=== PATIENT | male | born 1960 | race Caucasian/White ===

== ENCOUNTER 2018-11-13 19:56 | Emergency (ER) | payer OTHER ==
[2018-11-13 20:47] VITALS: BP 143/90; PULSE 84; TEMP 98.4; BMI 26.4
[2018-11-13] MEDS ORDERED: FAMOTIDINE 20 MG/50 ML IVPB 20 MG/50 ML MG IVPB ONE ×2 (21:37→21:58)
[2018-11-13] MEDS ORDERED: MAG HYDROX/AL HYDROX/SIMETH 30 ML UNIT-DOSE CUP PO ONE (21:37)
[2018-11-13] MEDS ORDERED: LIDOCAINE VISCOUS 2% ORAL/TOP 20 ML UNIT-DOSE CUP MM ONE (21:37)
--- NOTE | 2018-11-13 21:39 | PDOC ---
History of Present Illness - General Chief Complaint: Pain Stated Complaint: ABDOMINAL PAIN Time Seen by Provider: 11/13/18 21:28 - History of Present Illness Initial Comments: Jordy Durham is a 58yo otherwise healthy man who presents with 2 days of watery diarrhea and now severe epigastric pain. He says that he went to dinner with a friend on Tuesday night, and he woke up at 1am on Tuesday (yesterda) with multiople episodes of vomiting and diarrhea. He initially thought he probably had food poisoning, but his friend who ate from the same plate did not get sick. The vomiting stopped around 6am yesterday, and he thougth he was getting better in the afternoon, but the diarrhea started again yesterday. He states that the diarrhea is watery and "looks like a charcoal emulsion" with black specks in water. He bought immodium, which has stopped the diarrhea, but he continues to have severe epigastric and LUQ pain. He says that he can barely touch the area, and he has felt sweaty and lightheaded. Mr Durham went to an urgent care center today. 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 He additionally reported a visual disturbance, stating that everything looked "too bright." The urgent care physician was concerned that he could possibly have metal poisoning and transferred him to the ED for additional workup. The pt states that he wears appropriate protective equipment at work including a respirator, and he has been "very careful" while at work. He strongly believes that he has not been exposed to any metals and says he last worked with them at least a week ago. Mr Durham denies any other medical problems, frequent OTC medication use, drug or alcohol use, frequent heartburn, continued vomiting, family medical history, or any other problems. He says that he does not want any imaging, and he just wants medication for food poisoning and to be discharged home. Past History - Past Medical History Allergies/Adverse Reactions: Allergies Allergy/AdvReac Type Severity Reaction Status Date / Time No Known Allergies Allergy Verified 11/13/18 20:47 Home Medications: Ambulatory Orders Pantoprazole Sodium 40 mg PO DAILY #14 tablet. 11/14/18 - Suicide/Smoking/Psychosocial Hx Smoking History: Never smoked Have you smoked in the past 12 months: No Information on smoking cessation initiated: No Hx Alcohol Use: No Drug/Substance Use Hx: No Review of Systems - Review of Systems Comments:: General: No fevers, no chills, no weight or appetite change, no malaise HEENT: No changes in vision, no changes in hearing, no congestion, no sore throat CV: No chest pain, no palpitations, no LE edema Pulm: No SOB, no cough, no wheezing GI: See HPI : No frequency, no urgency, no dysuria Musc: No back pain, no joint swelling, no recent injury Skin: No rash, no lesions, no erythema Endo: No excessive thirst, no heat/cold intolerance Heme: No unusual bruising or bleeding, no swollen glands Neuro: No syncope, no numbness/tingling, no focal weakness Vasc: No claudication Psych: No recent change in mood, no SI or HI *Physical Exam - Vital Signs Last Vital Signs Temp Pulse Resp BP Pulse Ox 98.4 F 84 18 143/90 100 11/13/18 19:56 11/13/18 19:56 11/13/18 19:56 11/13/18 19:56 11/13/18 19:56 - Physical Exam Comments: General: Comfortable, no acute distress HEENT: PERRL, EOMI, dry mouth/tongue, voice normal, normal neck ROM Cards: RRR, no murmur appreciated Pulm: Comfortable on room air, clear to auscultation bilaterally Abd: Soft, non-distended. Severe TTP in epigastrium and LUQ : No CVA tenderness Rectal: Pt declined Ext: Atraumatic. No LE edema. ROM intact. Vasc: Extremities WWP Skin: Normal color, no rashes or lesions Neuro: A&Ox3, CN grossly intact, normal speech, motor/sensory grossly intact and symmetric Psych: Mood appropriate to situation ED Treatment Course - LABORATORY CBC & Chemistry Diagram: 11/13/18 21:50 11/13/18 21:50 Medical Decision Making - Medical Decision Making 11/13/18 21:38 Jordy Durham is a 58yo otherwise healthy man who presents with vomiting and diarrhea 2 days ago, now continued black watery diarrhea and severe epigastric pain. He additionally has visual disturbance, lightheadedness, and sweating today. Mr Durham was sent to the ED from urgent care due to concern that he may have had unintentional metal poisoning at work, but his last possible exposure was at least a week prior to symptom onset; he was feeling completely well prior to abrupt onset of symptoms 2 days ago. Mr Durham requests medication and declines any imaging or additional workup. - May be gastroenteritis, gastritis. Concerning for GI bleed given black stools , severe TTP in epigastrium and LUQ could potentially be due to PUD. - Less likely metal poisoning as he had abrupt onset of symptoms a week after any potential exposure. - Declines any imaging, even after discussion w/ pt explaining rationale - CBC, CMP ordered - Clinically dehydrated, IVF ordered - Famotidine, maalox, viscous lidocaine 11/13/18 23:32 - Labs notable for hgb 10.7, BUN 53 - d/w patient. Concerning for possible bleeding ulcer given epigastric/LUQ pain and black stool. Declines rectal exam. Discussed reason for obtaining rectal exam and stool sample, but pt continues to decline stating that he did not see any blood when he vomited on Tuesday - Pt given hemoccult card as he declined ELAINE, but placed card in his wallet rather than attempting to provide sample - Discussed with pt at length that he is anemic and dehydrated, strongly recommending admission for IVF and additional workup. Pt states that he does not wish to be admitted to the hospital, plans to take an uber home after his 1L IVF is completed. - Will have pt sign out AMA if he continues to decline admission 11/14/18 00:43 - Pt continued to decline additional workup - Will refer to GI and medicine for follow up - Discussed home care and return precautions at length. Mr Durham understands why additional workup and admission are being recommended but still prefers to go home. Says he feels better - Labs for metals including aluminum, copper, [place], cobalt (possible exposures) sent. Will call if positive - AMA paperwork signed Discussed with Dr Almaraz. Raisa Perez PGY2 *DC/Admit/Observation/Transfer Diagnosis at time of Disposition: Watery diarrhea, Dehydration, Epigastric abdominal pain - Discharge Dispostion Disposition: AGAINST MEDICAL ADVICE Condition at time of disposition: Fair - Referrals Referrals: Manjinder Tomlin DO [Staff Physician] - [facility] [place] [Provider Group] - Patient Instructions Printed Discharge Instructions: DI for Epigastric Pain Additional Instructions: Discharge Instructions: You were seen in the emergency department for epigastric pain and diarrhea. Your labs showed that you are anemic with a hemoglobin of 10.7. Your BUN is also elevated, which indicates dehydration. You declined any imaging or additional workup, so the exact cause of your symptoms cannot be determined. It is possible that you have stomach ulcers or possibly bleeding in the GI tract that was not confirmed. Home Care and Follow Up: - Use medications such as lansoprazole or omeprazole daily for the next 1-2 weeks until your symptoms completely resolve. You may wish to switch to a medication such as famotidine or ranitidine (available over the counter) at that point. - You may use Maalox or Mylanta as needed for stomach pain - Make sure you are staying well hydrated - You have been given contact information to follow up with Dr Tomlin (GI). Please make an appointment within the next week. - You have also been referred to the [facility] to establish healthcare. Please call to schedule an appointment as soon as possible. - Seek immediate care if you are unable to stay hydrated, you have continued or worsening symptoms, you are unable to tolerate liquids, you have blood in your stool or vomit, or you have any other medical emergency. - Post Discharge Activity
[2018-11-13] MEDS ORDERED: SODIUM CHLORIDE 0.9% 500 ML INFUS.BAG IV ONE (21:45)
[2018-11-13] MEDS ORDERED: MAG HYDROX/AL HYDROX/SIMETH 30 ML UNIT-DOSE CUP ONE (21:57)
[2018-11-13] MEDS ORDERED: LIDOCAINE VISCOUS 2% ORAL/TOP 20 ML UNIT-DOSE CUP ONE (21:57)
[2018-11-13 22:01] LABS: BASO % 0.4 % (0-2.0); EOS % 2.4 % (0-4.5); HEMATOCRIT 31.6 % (35.4-49); HEMOGLOBIN 10.7 GM/dL (11.7-16.9); LYMPH % 32.2 % (8-40); MCH 34.7 pg (25.7-33.7); MCHC 33.9 g/dl (32.0-35.9); MEAN CELL VOLUME 102.4 fl (80-96); MEAN PLT VOLUME 8.7 fl (7.5-11.1); MONO % 7.2 % (3.8-10.2); NEUT % 57.8 % (42.8-82.8); PLATELET COUNT 175 K/MM3 (134-434); RBC 3.08 M/mm3 (4.00-5.60); RDW 12.4 % (11.9-15.9); WHITE BLOOD COUNT 8.3 K/mm3 (4.0-10.0)
[2018-11-13 22:42] LABS: ALBUMIN 3.1 g/dl (3.4-5.0); BILIRUBIN,TOTAL 0.5 mg/dL (0.2-1); BLOOD UREA NITROGEN 53.3 mg/dL (7-18); CALCIUM 8.1 mg/dL (8.5-10.1); CREATININE 0.9 mg/dL (0.55-1.3); POTASSIUM 4.2 mmol/L (3.5-5.1); TOT PROT 5.4 g/dl (6.4-8.2)
--- NOTE | 2018-11-14 00:43 | PDOC ---
Documentation entered by Clint Todd SCRIBE, acting as scribe for Kym Almaraz MD. Kym Almaraz MD: This documentation has been prepared by the sune, Clint Todd SCRIBE, under my direction and personally reviewed by me in its entirety. I confirm that the documentation accurately reflects all work, treatment, procedures, and medical decision making performed by me. Attending Attestation - Resident Resident Name: Raisa Perez - ED Attending Attestation I have performed the following: I have examined & evaluated the patient, The case was reviewed & discussed with the resident, I agree w/resident's findings & plan, Exceptions are as noted - HPI HPI: 11/13/18 21:48 The patient is a 58 year old male with no past medical history here today for evaluation of epigastric pain and vomiting. The patient reports that he developed epigastric pain, diarrhea, and vomiting tuesday night into tuesday and partially resolved. He reports that his epigastric pain and diarrhea returned worse today and bought imodium and pepto. 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 He also notes feeling weak. Patient denies headache, lightheadedness. Denies fever, chills. Denies chest pain, shortness of breath. Allergies: NKA - Physicial Exam PE: 11/13/18 21:48 GENERAL: Well developed, thin. Awake and alert. No acute distress. HEENT: +dry mucous membranes. Normocephalic, atraumatic. PERRLA, EOMI. No conjunctival pallor. Sclera are non-icteric. Oropharynx is clear. NECK: Supple. Full ROM. No JVD. Carotid pulses 2+ and symmetric, without bruits. No thyromegaly. No lymphadenopathy. CARDIOVASCULAR: Regular rate and rhythm. No murmurs, rubs, or gallops. Distal pulses are 2+ and symmetric. PULMONARY: No evidence of respiratory distress. Lungs clear to auscultation bilaterally. No wheezing, rales or rhonchi. ABDOMINAL: +epigastric tenderness. +tenderness at the umbilicus. Soft. Non-distended. No rebound or guarding. No organomegaly. Normoactive bowel sounds. MUSCULOSKELETAL Normal range of motion at all joints. No bony deformities or tenderness. No CVA tenderness. EXTREMITIES: No cyanosis. No clubbing. No edema. No calf tenderness. SKIN: Warm and dry. Normal capillary refill. No rashes. No jaundice. NEUROLOGICAL: Alert, awake, appropriate. Cranial nerves 2-12 intact. No deficits to light touch and temperature in face, upper extremities and lower extremities. No motor deficits in the in face, upper extremities and lower extremities. Normoreflexic in the upper and lower extremities. Normal speech. Toes are down- going bilaterally. Gait is normal without ataxia. PSYCHIATRIC: Cooperative. Good eye contact. Appropriate mood and affect. - Medical Decision Making 11/14/18 00:03 patient appears severely dehydrated with dry mucous membranes review his labs findings that he has anemia and also has an elevated BUN of 53 on exam, the patient had tenderness in his epigastric area patient agrees to IV fluids at this time but does not want any imaging studies, he says he does not want to stay,we discussed his anemia and he did not want to have a rectal exam at this time. 11/14/18 00:38 Once he received his IVF he refused any further treatment or work up, he signed AMA
== END 2018-11-14 00:46 | disposition left against medical advice (07) ==
LOC: JER 19:56
PROC: 3E033GC Introduction of Other Therapeutic Substance into Peripheral Vein, Percutaneous Approach (ICD-10-PCS; principal; 2018-11-13)
DX: E86.0 Dehydration (principal)
CPT/HCPCS: 36415; 80053; 85025; 99282-25

== ENCOUNTER 2018-11-14 18:14 | Inpatient (IN) | payer OTHER ==
[2018-11-14 18:30] VITALS: BMI 23.1
--- NOTE | 2018-11-14 18:30 | PDOC ---
Rapid Medical Evaluation Time Seen by Provider: 11/14/18 18:23 Medical Evaluation: Allergies Allergy/AdvReac Type Severity Reaction Status Date / Time No Known Allergies Allergy Verified 11/13/18 20:47 11/14/18 18:24 The patient presents to the ER after passing out this afternoon. Was seen last night for abdominal pain and epigastric pain. He states that blacked out this after noon when trying to answer a phone. Does not remember falling or hitting his head. Still reports some abdominal pain Exam: laceration to the posterior head, NAD Orders: labs, head CT, EKG Pt to proceed to the ER for further evaluation Discharge Disposition - Diagnosis Syncope - Referrals - Patient Instructions - Post Discharge Activity
[2018-11-14 20:51] LABS: BASO % 0.5 % (0-2.0); HEMATOCRIT 26.2 % (35.4-49); HEMOGLOBIN 8.8 GM/dL (11.7-16.9); LYMPH % 20.7 % (8-40); MCH 34.6 pg (25.7-33.7); MCHC 33.5 g/dl (32.0-35.9); MEAN CELL VOLUME 103.4 fl (80-96); MEAN PLT VOLUME 9.2 fl (7.5-11.1); MONO % 5.8 % (3.8-10.2); PLATELET COUNT 166 K/MM3 (134-434); RBC 2.53 M/mm3 (4.00-5.60); RDW 12.6 % (11.9-15.9); WHITE BLOOD COUNT 8.5 K/mm3 (4.0-10.0)
[2018-11-14 21:04] LABS: PROTHROMBIN TIME (PATIENT) 11.8 SEC (9.7-13.0)
[2018-11-14 21:28] LABS: ALBUMIN 3.2 g/dl (3.4-5.0); BILIRUBIN,TOTAL 0.4 mg/dL (0.2-1); BLOOD UREA NITROGEN 39.6 mg/dL (7-18); CALCIUM 8.1 mg/dL (8.5-10.1); CREATININE 0.9 mg/dL (0.55-1.3); TOT PROT 5.6 g/dl (6.4-8.2)
[2018-11-14] MEDS ORDERED: PANTOPRAZOLE SODIUM 40 MG VIAL IVPUSH ONE (22:06)
[2018-11-14] MEDS ORDERED: SODIUM CHLORIDE 1,000 ML IV STA (22:36)
[2018-11-14] MEDS ORDERED: PANTOPRAZOLE SODIUM 40 MG/100 ML BAG IVPB ONE (22:49)
--- NOTE | 2018-11-15 00:45 | PDOC ---
Documentation entered by Jimmy Anthony SCRIBE, acting as scribe for Kym Almaraz MD. Kym Almaraz MD: This documentation has been prepared by the Gabrielle dewey Elijah, SCRIBE, under my direction and personally reviewed by me in its entirety. I confirm that the documentation accurately reflects all work, treatment, procedures, and medical decision making performed by me. History of Present Illness - General Chief Complaint: Injury Stated Complaint: FALL/HEAD INJURY/SYNCOPE Time Seen by Provider: 11/14/18 18:23 History Source: Patient Exam Limitations: No Limitations - History of Present Illness Initial Comments: 11/14/18 19:49 The patient is a 58 year old male with no reported significant past medical history who reports to the ED s/p syncopal episode. The patient reported being sick with nausea, vomiting and diarrhea x3 days prior. The day after, the patient only had diarrhea, took imodium and came into the ED for weakness. The patient required IV, refused imaging and left AMA. This morning the patient could only take 10 steps before sitting down. Later in the day the patient woke up on the floor after hitting the floor with blood on their head and losing consciousness which was said to have lasted for a few minutes. Allergies: NKA Past History - Past Medical History Allergies/Adverse Reactions: Allergies Allergy/AdvReac Type Severity Reaction Status Date / Time No Known Allergies Allergy Verified 11/13/18 20:47 Home Medications: Ambulatory Orders Pantoprazole Sodium 40 mg PO DAILY #14 tablet. 11/14/18 Asthma: No Cardiac Disorders: No COPD: No Diabetes: No - Immunization History Immunization Up to Date: No - Suicide/Smoking/Psychosocial Hx Smoking History: Never smoked Have you smoked in the past 12 months: No Information on smoking cessation initiated: No Hx Alcohol Use: No Drug/Substance Use Hx: No Review of Systems - Review of Systems Comments:: 11/14/18 19:50 GENERAL/CONSTITUTIONAL:+Weakness. +Fatigue No fever or chills. HEAD, EYES, EARS, NOSE AND THROAT: No change in vision. No ear pain or discharge. No sore throat. CARDIOVASCULAR: No chest pain or shortness of breath. RESPIRATORY: No cough, wheezing, or hemoptysis. GASTROINTESTINAL: No nausea, vomiting, diarrhea or constipation. GENITOURINARY: No dysuria, frequency, or change in urination. MUSCULOSKELETAL: No joint or muscle swelling or pain. No neck or back pain. SKIN: No rash NEUROLOGIC: +Difficulty Walking. No headache, vertigo, ENDOCRINE: No increased thirst. No abnormal weight change. HEMATOLOGIC/LYMPHATIC: No anemia, easy bleeding, or history of blood clots. ALLERGIC/IMMUNOLOGIC: No hives or skin allergy. *Physical Exam - Vital Signs Last Vital Signs Temp Pulse Resp BP Pulse Ox 98.4 F 98 H 16 120/67 100 11/14/18 18:26 11/14/18 18:26 11/14/18 18:26 11/14/18 18:26 11/14/18 18:26 - Physical Exam Comments: 11/14/18 19:51 GENERAL: Awake, alert, and fully oriented, in no acute distress HEAD: +Skull Plaque EYES: + Pale Conjunctiva. PERRLA, EOMI, sclera anicteric, ENT: Auricles normal inspection, hearing grossly normal, nares patent, oropharynx clear without exudates. Moist mucosa NECK: Normal ROM, supple, no lymphadenopathy, JVD, or masses LUNGS: Breath sounds equal, clear to auscultation bilaterally. No wheezes, and no crackles HEART: +Tachycardic. Normal S1 and S2, no murmurs, rubs or gallops ABDOMEN: Soft, nontender, normoactive bowel sounds. No guarding, no rebound. No masses EXTREMITIES: Normal range of motion, no edema. No clubbing or cyanosis. No cords, erythema, or tenderness NEUROLOGICAL: Cranial nerves II through XII grossly intact. Normal speech, normal gait SKIN: Warm, Dry, normal turgor, no rashes or lesions noted. Procedures - Laceration/Wound Repair Right Temporal Wound Length: 2.6 to 5.0 cm Wound's Depth, Shape: into muscle Irrigated w/ Saline: Yes Betadine Prep: Yes Anesthesia: 1% Lidocaine Amount of Anesthetic (ccs): 6 Wound Debrided: minimal Wound Repaired With: [place] (four timo) Layer Closure: No Sterile Dressing Applied: No Splint Applied: No Sling Applied: No ED Treatment Course - LABORATORY CBC & Chemistry Diagram: 11/14/18 20:40 11/14/18 20:40 - ADDITIONAL ORDERS Additional order review: Laboratory Results 11/14/18 11/14/18 11/14/18 22:20 20:40 20:40 PT with INR INR Sodium Potassium Chloride Carbon Dioxide Anion Gap BUN Creatinine Est GFR (CKD-EPI)AfAm Est GFR (CKD-EPI)NonAf Random Glucose Calcium Total Bilirubin AST ALT Alkaline Phosphatase Creatine Kinase 43 Troponin I < 0.02 Total Protein Albumin Stool Occult Blood Positive Blood Type O POSITIVE Antibody Screen Negative Crossmatch See Detail 11/14/18 11/14/18 20:40 20:40 PT with INR 11.80 INR 1.00 Sodium 144 Potassium 4.0 Chloride 110 H Carbon Dioxide 27 Anion Gap 7 L BUN 39.6 H Creatinine 0.9 Est GFR (CKD-EPI)AfAm 107.97 Est GFR (CKD-EPI)NonAf 93.16 Random Glucose 96 Calcium 8.1 L Total Bilirubin 0.4 AST 38 H ALT 67 H Alkaline Phosphatase 38 L Creatine Kinase Troponin I Total Protein 5.6 L Albumin 3.2 L Stool Occult Blood Blood Type Antibody Screen Crossmatch 11/14/18 20:40 RBC 2.53 L MCV 103.4 H MCHC 33.5 RDW 12.6 MPV 9.2 Neutrophils % 72.0 D Lymphocytes % 20.7 D Monocytes % 5.8 Eosinophils % 1.0 Basophils % 0.5 - RADIOLOGY Radiology Studies Ordered: Category Date Time Status ABDOMEN CTA W/WO CONTRAST [CT] Stat CT Scan 11/14/18 22:35 Taken CHEST CTA [CT] Stat CT Scan 11/14/18 22:35 Taken CHEST X-RAY PORTABLE* [RAD] Stat Radiology 11/14/18 20:13 Completed - Medications Given in the ED: ED Medications Discontinued Medications Generic Name Dose Route Start Last Admin Trade Name Freq PRN Reason Stop Dose Admin Sodium Chloride 1,000 mls @ 1,000 mls/hr 11/14/18 22:36 11/14/18 23:54 Normal Saline - IV 11/14/18 23:35 1,000 mls/hr ASDIR STA Administration Pantoprazole Sodium 40 mg 11/14/18 22:06 11/14/18 23:54 Protonix Iv IVPUSH 11/14/18 22:07 40 mg ONCE ONE Administration Medical Decision Making - Medical Decision Making 11/15/18 02:00 cta chest no PE,no infiltrates,no aortic dissection,no aortic aneurysm *DC/Admit/Observation/Transfer Diagnosis at time of Disposition: Syncope Qualifiers: Syncope type: unspecified Qualified Code(s): R55 - Syncope and collapse Anemia Qualifiers: Anemia type: other cause Other causes of anemia: other cause, not classified Qualified Code(s): D64.89 - Other specified anemias GI bleed Qualifiers: GI bleed type/associated pathology: unspecified gastrointestinal hemorrhage type Qualified Code(s): K92.2 - Gastrointestinal hemorrhage, unspecified Head trauma Qualifiers: Encounter type: initial encounter Qualified Code(s): S09.90XA - Unspecified injury of head, initial encounter Scalp laceration Qualifiers: Encounter type: initial encounter Qualified Code(s): S01.01XA - Laceration without foreign body of scalp, initial encounter - Discharge Dispostion Condition at time of disposition: Good Decision to Admit order: Yes - Referrals - Patient Instructions - Post Discharge Activity
[2018-11-15] MEDS ORDERED: LACTATED RINGERS SOLUTION 1000 ML INFUS.BAG IV ONE (04:18)
[2018-11-15] MEDS ORDERED: PANTOPRAZOLE SODIUM 40 MG VIAL IVPUSH ONE (04:30)
[2018-11-15] MEDS ORDERED: PANTOPRAZOLE SODIUM 40 MG VIAL ONE (05:26)
--- NOTE | 2018-11-15 05:45 | HP ---
CHIEF COMPLAINT: PCP: HISTORY OF PRESENT ILLNESS: 57M with PMH of traumatic L4-L5 injury s/p discectomy presents with head lac and (+)LOC w/a fatigue, lightheadedness. Recently, left AMA from [facility]ED after refusing admission for abd pain, NVD, coal-black melena-diarrhea x3d, with Hgb ~ 10.7. 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 Tried immodium for diarrhea. Had visual hallucinations who which he initially presented to but subsequently referred to the ED due to concern for heavy metal poisoning. For his 11/14 ED presentation, pt loss consciousness(unknown period of time) and found himself on the ground with a scalp laceration. Denies previous history of melena. Denies hematemesis, hematochezia. Never had colonoscopy. Has had h/o of esophageal dilations(2000, 2014). Denies h/o hyplori. Takes daily Aleve and motrin x10ys for generalized body aches. 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 11/14/18 REVIEW OF SYSTEMS CONSTITUTIONAL: positive generalized weakness, malaise Absent: fever, chills, diaphoresis, loss of appetite, weight change HEENT: trouble swallowing meats Absent: rhinorrhea, nasal congestion, throat pain, throat swelling, visual changes CARDIOVASCULAR: Absent: chest pain, syncope, palpitations, irregular heart rate, lightheadedness , peripheral edema RESPIRATORY: Absent: cough, shortness of breath, dyspnea with exertion, orthopnea, wheezing, stridor, hemoptysis GASTROINTESTINAL: positive for abd pain, NVD, melena Absent: abdominal distension, constipation, hematochezia GENITOURINARY: Absent: dysuria, frequency, urgency, hesitancy, hematuria, flank pain, genital pain MUSCULOSKELETAL: Absent: myalgia, arthralgia, joint swelling, back pain, neck pain SKIN: Absent: rash, itching, pallor HEMATOLOGIC/IMMUNOLOGIC: Absent: easy bleeding, easy bruising, lymphadenopathy, frequent infections ENDOCRINE: Absent: unexplained weight gain, unexplained weight loss, heat intolerance, cold intolerance NEUROLOGIC: Absent: headache, focal weakness or paresthesias, dizziness, unsteady gait, seizure, mental status changes, bladder or bowel incontinence PSYCHIATRIC: Absent: anxiety, depression, suicidal or homicidal ideation, hallucinations. PHYSICAL EXAMINATION Vital Signs - 24 hr 11/14/18 11/14/18 18:26 23:43 Temperature 98.4 F Pulse Rate 98 H Pulse Rate [ 80 Right Radial] Respiratory 16 14 Rate Blood Pressure 120/67 Blood Pressure 109/98 [Right Arm] O2 Sat by Pulse 100 100 Oximetry (%) GENERAL: Awake, alert, and fully oriented, in no acute distress. HEAD: Right church lac, closed with timo; no active bleed EYES: Pupils equal, round and reactive to light, extraocular movements intact, sclera anicteric, conjunctiva clear. No sceral pallor. EARS, NOSE, THROAT: Ears normal, nares patent, oropharynx clear without exudates. Moist mucous membranes. NECK: Normal range of motion, supple without lymphadenopathy, JVD, or masses. LUNGS: Breath sounds equal, clear to auscultation bilaterally. No wheezes, and no crackles. No accessory muscle use. HEART: Regular rate and rhythm, normal S1 and S2 without murmur, rub or gallop. ABDOMEN: Soft, not distended, mild TTP of Left hemiabd/epigastrium, no guarding , no rebound, no masses. MUSCULOSKELETAL: Normal range of motion at all joints. No bony deformities or tenderness. No CVA tenderness. UPPER EXTREMITIES: warm, well-perfused. No cyanosis. No clubbing. No peripheral edema. Capillary refill <2s LOWER EXTREMITIES: warm, well-perfused. No calf tenderness. No peripheral edema. NEUROLOGICAL: Normal speech. Normal gait. PSYCHIATRIC: Cooperative. Good eye contact. Appropriate mood and affect. SKIN: Warm, dry, normal turgor, no rashes or lesions noted, normal capillary refill. Laboratory Results - last 24 hr 11/14/18 11/14/18 11/14/18 20:40 20:40 20:40 WBC 8.5 RBC 2.53 L Hgb 8.8 L Hct 26.2 L D MCV 103.4 H MCH 34.6 H MCHC 33.5 RDW 12.6 Plt Count 166 MPV 9.2 Absolute Neuts (auto) 6.1 Neutrophils % 72.0 D Lymphocytes % 20.7 D Monocytes % 5.8 Eosinophils % 1.0 Basophils % 0.5 Nucleated RBC % 0 PT with INR 11.80 INR 1.00 Sodium 144 Potassium 4.0 Chloride 110 H Carbon Dioxide 27 Anion Gap 7 L BUN 39.6 H Creatinine 0.9 Est GFR (CKD-EPI)AfAm 107.97 Est GFR (CKD-EPI)NonAf 93.16 Random Glucose 96 Calcium 8.1 L Total Bilirubin 0.4 AST 38 H ALT 67 H Alkaline Phosphatase 38 L Creatine Kinase Troponin I Total Protein 5.6 L Albumin 3.2 L Stool Occult Blood Blood Type Antibody Screen Crossmatch 11/14/18 11/14/18 11/14/18 20:40 20:40 22:20 WBC RBC Hgb Hct MCV MCH MCHC RDW Plt Count MPV Absolute Neuts (auto) Neutrophils % Lymphocytes % Monocytes % Eosinophils % Basophils % Nucleated RBC % PT with INR INR Sodium Potassium Chloride Carbon Dioxide Anion Gap BUN Creatinine Est GFR (CKD-EPI)AfAm Est GFR (CKD-EPI)NonAf Random Glucose Calcium Total Bilirubin AST ALT Alkaline Phosphatase Creatine Kinase 43 Troponin I < 0.02 Total Protein Albumin Stool Occult Blood Positive Blood Type O POSITIVE Antibody Screen Negative Crossmatch See Detail ASSESSMENT/PLAN: 57M presenting with acute upper GI bleed possibly 2/2 chronic NSAID usage, less likely from esophageal varices # upper GI bleed >hgb ~8.8 >CTA chest/abd/pel -- no abn - pantoprazole 80mg, then 8mg/h - NPO - transfuse pRBC x1 - GI consult pending # chronic EtOH usage - banana bag x1 - CIWA precautions # chronic esophageal stricture - appreciate GI consult recommendations NEURO # (+)LOC - echo pending # head laceration >noncon CTH -- neg for intracranial processes - s/p staple closure - no abx needed - pain regimen: acetaminophen CARDIO # no acutely active issues - tele monitor for +LOC - vitals q4h RESPIR # chronic tobacco usage - counseled on tobacco cessation - consider starting nicotine patch PRN RENAL # no acutely active issues - monitor I/Os - replete electrolytes PRN FEN - NPO - protonix gtt then LR mIVF HEME/ID # acute macrocytic anemia likely 2/2 to upper GIB + B-vitamin deficiency - fu post-transfusion H/H DISPO - likely safe for home upon resolution of above issues Sudheer Cantu, DO PGY-1 Medicine, PM Float [id number] 11/15/18 Visit type - Emergency Visit Emergency Visit: Yes ED Registration Date: 11/15/18 Care time: The patient presented to the Emergency Department on the above date and was hospitalized for further evaluation of their emergent condition. - New Patient This patient is new to me today: Yes Date on this admission: 11/15/18 - Critical Care Critical Care patient: No
[2018-11-15] MEDS ORDERED: FOLIC ACID INJECTION - 1 MG, THIAMINE HCL 100 MG, MULTIVIT INJECTION ADULT 10 ML in SOD... IVPB ONE (06:02)
[2018-11-15] MEDS: PANTOPRAZOLE SODIUM 80 MG in SODIUM CHLORIDE 100 ML IVPB SCH ×2 (06:14→08:41)
--- NOTE | 2018-11-15 06:32 | PN ---
Teaching Attending Note Name of Resident: Sudheer Cantu ATTENDING PHYSICIAN STATEMENT I saw and evaluated the patient. I reviewed the resident's note and discussed the case with the resident. I agree with the resident's findings and plan as documented. SUBJECTIVE: Seen and examined; 58 y/o male presenting to the ER with black diarrhea and syncope; he was seen in the ER yday and discharged AMA; please refer to thei notes for further historical information. He came back today due to waking up on the ground after he syncopized with a head lac; he was taken to the hospital subsequentially where he revealed the diarrhea history. Hb down 10 to 8 with decrease in BUN and no further bleeding noted here. Has history of what sounds to be esophageal strictures? (said his food got stuck) and he was dilated 2x [place] of state with no recent procedures and he does not follow with GI regularly. He is afebrile and hemodynamically stable. Giving protonix, blood, and admitting to telemetry. He is concerned about food poisoning but he shared a plate with a friend who is asymptomatic. States he uses a good deal of NSAIDs , drinks beer (resident team concerned he may be underplaying hx). Will be admitted to medicne with GI consult. 10 sys ROS done and negative aside from HPI PMH, PSH, FH, SH reviewed Home Medications Medication Instructions Recorded Pantoprazole Sodium 40 mg PO DAILY #14 tablet. 11/14/18 OBJECTIVE: VS, labs, imaging reviewed NAD, AAO, resting comfortably in bed NC, s/p timo, EOMI NT ND +BS Refused rectal RRR s1/2 no mgr Lungs CTAB, w/ sym exp CN2-12 wnl, no fnd Normal mood, appropriate affect. CIWA 0 EKG pending review Preliminary CT reports reviewed ASSESSMENT AND PLAN:
--- NOTE | 2018-11-15 09:13 | CON.GI ---
Consult Consult Specialty:: GI Referred by:: Taran Valerio Reason for Consultation:: Low HGB - History of Present Illness Chief Complaint: LOC History of Present Illness: 58 y/o male presenting to the ER with black diarrhea and syncope; he was seen in the ER yesterday and discharged AMA; He came back today due to waking up on the ground after he syncopized with a head lac; he was taken to the hospital subsequentially where he revealed the diarrhea history. Hb down 10 to 8 with decrease in BUN and no further bleeding noted here. Has history of what sounds to be esophageal strictures? (said his food got stuck) and he was dilated 2x out of state with no recent procedures and he does not follow with GI regularly. He is afebrile and hemodynamically stable. Giving protonix, blood, and admitting to telemetry. He is concerned about food poisoning but he shared a plate with a friend who is asymptomatic. States he uses a good deal of NSAIDs , drinks beer (resident team concerned he may be underplaying hx). Will be admitted to [facility] with GI consult. pt deneis any hematemesis or bloody/bleck stool , he reports symptoms of dizziness and light headedness when he get up of bed reports chronic use of Advil for back pain reports drinking 1-2 beeras daily had sever vomiting Tuesday night for almost 4 hours , one episode of diarrhea on Tuesday , LOC on Tuesday around 5 pm - History Source History Provided By: Patient Limitations to Obtaining History: No Limitations - Past Medical History SAILOR: No: Alzheimer's, CVA, Dementia, Migraine, Multiple Sclerosis, Peripheral Neuropathy, Parkinson's, Seizure, Syncope, TIA, Vertigo, Other Cardio/Vascular: No: AFIB, Aneurysm, Aortic Insufficiency, Aortic Stenosis, CAD , CHF, Deep Vein Thrombosis, HTN, Hyperlipdemia, NV, Mitral Insufficiency, Mitral Stenosis, Murmur, Pulmonary Hypertension, Other Gastrointestinal: Yes: Other (reports solid food stuck in his esophagus and 2 previous dilation was done 2000 and 2014 ). No: Ascites Hepatobiliary: No: Cirrhosis, Cholelithiasis Renal/: No: Hematuria, Hemodialysis Heme/Onc: Yes: Anemia. No: Current Chemotherapy, Current Radiation Therapy - Past Surgical History Additional Surgical History: herniated disk l5-S1 - Alcohol/Substance Use Hx Alcohol Use: Yes (couple of beer every day) Number of Drinks Daily: 2 History of Substance Use: reports: None - Smoking History Smoking history: Current every day smoker (1/2 PPD for 40 years) Have you smoked in the past 12 months: Yes Aproximately how many cigarettes per day: 10 - Social History Usual Living Arrangement: Alone <Aftab Upton - Last Filed: 11/15/18 13:19> Home Medications <Aftab Upton - Last Filed: 11/15/18 13:19> <Magda Armenta - Last Filed: 11/15/18 13:29> - Allergies Allergies/Adverse Reactions: Allergies Allergy/AdvReac Type Severity Reaction Status Date / Time No Known Allergies Allergy Verified 11/13/18 20:47 - Home Medications Home Medications: Ambulatory Orders Pantoprazole Sodium 40 mg PO DAILY #14 tablet. 11/14/18 Family Disease History - Family Disease History Other Family History: non contributory <Aftab Upton - Last Filed: 11/15/18 13:19> Review of Systems - Review of Systems Constitutional: reports: Malaise, Night Sweats HENT: reports: Difficult Swallowing Respiratory: denies: Hemoptysis, Orthopnea, SOB, SOB on Exertion Gastrointestinal: reports: Abdominal Pain, Diarrhea, Dysphagia, Nausea, Vomiting Genitourinary: denies: Dysuria, Flank Pain, Hematuria <Aftab Upton - Last Filed: 11/15/18 13:19> Physical Exam-GI Vital Signs: Vital Signs Temperature 97.9 F 11/15/18 08:56 Pulse Rate 68 11/15/18 08:56 Respiratory Rate 20 11/15/18 08:56 Blood Pressure 122/57 L 11/15/18 08:56 O2 Sat by Pulse Oximetry (%) 100 11/15/18 07:41 Constitutional: Yes: Well Nourished, No Distress, Calm Eyes: Yes: Conjunctiva Clear, EOM Intact HENT: Yes: Atraumatic, Normocephalic Neck: Yes: Supple Cardiovascular: Yes: Regular Rate and Rhythm Respiratory: Yes: CTA Bilaterally Gastrointestinal Inspection: No: Ascites, Distention, Scars ...Auscultate: Yes: Normoactive Bowel Sounds ...Palpate: Yes: Soft, Tenderness (epigastric). No: Guarding, Mass ...Rectal Exam: Yes: Guaiac Positive (done By ED), Sphincter Tone Normal. No: Hemorrhoids/External, Hemorrhoids/Internal, Mass Edema: No Peripheral Pulses WNL: Yes Labs: CBC, [facility] 11/14/18 20:40 11/14/18 20:40 INR, PTT INR 1.00 (0.83-1.09) 11/14/18 20:40 <Aftab Upton - Last Filed: 11/15/18 13:19> Vital Signs: Vital Signs Temperature 97.9 F 11/15/18 13:00 Pulse Rate 65 11/15/18 13:16 Respiratory Rate 18 11/15/18 13:16 Blood Pressure 110/61 11/15/18 13:16 O2 Sat by Pulse Oximetry (%) 100 11/15/18 13:16 Labs: CBC, [facility] 11/14/18 20:40 11/14/18 20:40 INR, PTT INR 1.00 (0.83-1.09) 11/14/18 20:40 <Magda Armenta - Last Filed: 11/15/18 13:29> Imaging - Results Chest X-ray: Report Reviewed X-ray: Report Reviewed Cat Scan: Report Reviewed Ultrasound: Report Reviewed MRI: Report Reviewed EKG: Report Reviewed Other: Report Reviewed <Aftab Upton Last Filed: 11/15/18 13:19> Problem List - Problems (1) Anemia Code(s): D64.9 - ANEMIA, UNSPECIFIED Qualifiers: Anemia type: other cause Other causes of anemia: other cause, not classified Qualified Code(s): D64.89 - Other specified anemias <Aftab Upton - Last Filed: 11/15/18 13:19> Assessment/Plan 58 year old amle with no pmhx presented to the ED with LOC and head laceration due to syncope episode was found to have low HGb and we were consulted for hematemesis # syncope work up per primary team # Anemia macrocytic recieved 2 units PRBC # H/o Esophageal stricture S/P dilation 2014 # Diffuclty swallowing for solid food R.O malignancy vs blomer vison Syndrome vs Diverticulum * pt has low H/H . s.p one units PRBC * Monitor H/H * For EGD today * keep NPO till EGD * iron studies pending * Follow FA , B12 * Lead screening test blood follow up out pt * cont IV fluids * PPI 40 BID * avoid NSAIDS (Advil , alleve , ASA , .....Motrin .....) * can discuss colonoscopy prior to dc vs out pt * * * EGD performed today By Dr dayo Man shows no stricture , GE ulcer , biposies was taken , follow pathology reports * PPI 40 Po BID for 2-3 months till next EGD in 3months * continue thiamin , folic acid , * follow iron studies <Aftab Upton - Last Filed: 11/15/18 13:19> Pt seen/examined with Dr. Upton, agree with above assessment and plan. 58 yo male presenting with syncopal episode, n/v and reported dark stools with acute anemia (macrocytic). Reports history of esophageal strictures requiring dilations a few years ago. No prior colonoscopy. EGD performed today revealing GEJ ulcer extending to cardia, antral erythema otherwise unremarkable. No rings or strictures seen. Biopsies taken. Recommend PPI bid and NSAID avoidance. Follow up pathology results. Complete anemia workup including iron studies/ferritin, B12/folate. Pt will also require colonoscopy, timing to be determined pending clinical course. <Magda Armenta - Last Filed: 11/15/18 13:29>
--- NOTE | 2018-11-15 09:24 | PN ---
Physical Exam: SUBJECTIVE: Patient seen and examined at bedside. pt is currently stable. Pt is stating he is feeling "ok" but has some tenderness in his abdomen. OBJECTIVE: Vital Signs Period Temp Pulse Resp BP Sys/Hernandez Pulse Ox Last 24 Hr 97.9 F-98.6 F 68-98 14-20 109-136/57-98 97-100 GENERAL: The patient is awake, alert, and fully oriented, in no acute distress. HEAD: Normal with no signs of trauma. EYES: extraocular movements intact, sclera anicteric. LUNGS: Breath sounds equal, clear to auscultation bilaterally, no wheezes, no crackles, no accessory muscle use. HEART: Regular rate and rhythm, S1, S2 without murmur, rub or gallop. ABDOMEN: Soft, tender, nondistended, normoactive bowel sounds. EXTREMITIES: 2+ pulses, warm, well-perfused, no edema. NEUROLOGICAL: Cranial nerves II through XII grossly intact. Normal speech, gait not observed. PSYCH: Normal mood, normal affect. SKIN: Warm, dry, normal turgor, no rashes or lesions noted Laboratory Last Values WBC 8.5 K/mm3 (4.0-10.0) 11/14/18 20:40 RBC 2.53 M/mm3 (4.00-5.60) L 11/14/18 20:40 Hgb 8.8 GM/dL (11.7-16.9) L 11/14/18 20:40 Hct 26.2 % (35.4-49) L D 11/14/18 20:40 MCV 103.4 fl (80-96) H 11/14/18 20:40 MCH 34.6 pg (25.7-33.7) H 11/14/18 20:40 MCHC 33.5 g/dl (32.0-35.9) 11/14/18 20:40 RDW 12.6 % (11.9-15.9) 11/14/18 20:40 Plt Count 166 K/MM3 (134-434) 11/14/18 20:40 MPV 9.2 fl (7.5-11.1) 11/14/18 20:40 Absolute Neuts (auto) 6.1 K/mm3 (1.5-8.0) 11/14/18 20:40 Neutrophils % 72.0 % (42.8-82.8) D 11/14/18 20:40 Lymphocytes % 20.7 % (8-40) D 11/14/18 20:40 Monocytes % 5.8 % (3.8-10.2) 11/14/18 20:40 Eosinophils % 1.0 % (0-4.5) 11/14/18 20:40 Basophils % 0.5 % (0-2.0) 11/14/18 20:40 Nucleated RBC % 0 % (0-0) 11/14/18 20:40 PT with INR 11.80 SEC (9.7-13.0) 11/14/18 20:40 INR 1.00 (0.83-1.09) 11/14/18 20:40 Sodium 144 mmol/L (136-145) 11/14/18 20:40 Potassium 4.0 mmol/L (3.5-5.1) 11/14/18 20:40 Chloride 110 mmol/L (98-107) H 11/14/18 20:40 Carbon Dioxide 27 mmol/L (21-32) 11/14/18 20:40 Anion Gap 7 MMOL/L (8-16) L 11/14/18 20:40 BUN 39.6 mg/dL (7-18) H 11/14/18 20:40 Creatinine 0.9 mg/dL (0.55-1.3) 11/14/18 20:40 Est GFR (CKD-EPI)AfAm 107.97 11/14/18 20:40 Est GFR (CKD-EPI)NonAf 93.16 11/14/18 20:40 Random Glucose 96 mg/dL (74-106) 11/14/18 20:40 Calcium 8.1 mg/dL (8.5-10.1) L 11/14/18 20:40 Total Bilirubin 0.4 mg/dL (0.2-1) 11/14/18 20:40 AST 38 U/L (15-37) H 11/14/18 20:40 ALT 67 U/L (13-61) H 11/14/18 20:40 Alkaline Phosphatase 38 U/L (45-117) L 11/14/18 20:40 Creatine Kinase 43 U/L (26-308) 11/14/18 20:40 Troponin I < 0.02 ng/ml (0.00-0.05) 11/14/18 20:40 Total Protein 5.6 g/dl (6.4-8.2) L 11/14/18 20:40 Albumin 3.2 g/dl (3.4-5.0) L 11/14/18 20:40 Stool Occult Blood Positive (NEGATIVE) 11/14/18 22:20 Blood Type O POSITIVE 11/15/18 03:18 Antibody Screen Negative 11/14/18 20:40 Crossmatch See Detail 11/14/18 20:40 Active Medications Generic Name Dose Route Start Last Admin Trade Name Freq PRN Reason Stop Dose Admin Acetaminophen 650 mg 11/15/18 05:43 Tylenol - PO Q6H PRN Fever Or Pain Pantoprazole Sodium 80 mg/ 100 mls @ 10 mls/hr 11/15/18 05:00 11/15/18 08:41 Sodium Chloride IVPB 11/16/18 12:00 10 mls/hr Q10H DEIRDRE Administration 8 MG/HR Folic Acid 1 mg/ Thiamine HCl 1,000 mls @ 125 mls/hr 11/15/18 06:02 100 mg/ Multivitamins/Minerals IVPB 11/15/18 14:01 10 ml/ Sodium Chloride ONCE ONE Lactated Ringer's 1,000 ml in 1,000 mls @ 100 mls/hr 11/16/18 13:00 Lactated Ringers Solution IV\\ ASDIR DEIRDRE ASSESSMENT/PLAN: pt is a 58 yo M with Hx of esophageal strictures s/p dilation (2014), traumatic L4/L5 injury s/p discectomy . Pt was admitted with a head laceration following a syncopal episode w/ LOC. Preceding the syncopal episode the pt reports being lightheadedness. Pt states prior to this episode pt has been vomiting since . 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 Pt was recently seen in the [facility] ED on 11/13 with complaints of abdominal pain,n/v/ d. At that time the pt had a Hb of 10.7. Pt left AMA. At home pt took immodium for diarrhea. Later, pt noticed he experienced visual disturbances. Pt admits to having loose dark stool. Pt admits to drinking 1-2 guiness/ night. Acute blood loss anemia 2/2 GE-J ulcer -Hgb 11/14/18 is 8.8. Today 11/15/18 Hgb is 8.4. rpt CBC at 7 pm. if Hgb is below 7.5--> Transfuse. -s/p 2 units pRBC -continue monitoring H/H -GI recs : EGD today showing GEJ ulcer , antral erythema and no active bleeding. Pt needs rpt EGD and colonoscopy in 8-12 weeks as outpt. -f/u w/ Fe studies -GI ppx: PPI 40 mg BID -continue to avoid NSAID Alcohol Abuse -following CIWA , no current signs of withdrawal -s/p banana bag -Folate is 28. Syncopal Episode CT head:-mild volume loss, no acute intracranial pathology -scalp laceration s/p timo -ECHO: Normal LV size and normal LV EF -most likely 2/2 alcohol consumption DVT ppx: SCDs Visit type - Emergency Visit Emergency Visit: No - New Patient This patient is new to me today: No - Critical Care Critical Care patient: No - Discharge Referral Referred to [facility] Med P.C.: No
--- NOTE | 2018-11-15 10:43 | EKG ---
Test Reason : Blood Pressure : / mmHG Vent. Rate : 083 BPM Atrial Rate : 083 BPM P-R Int : 124 ms QRS Dur : 084 ms QT Int : 390 ms P-R-T Axes : 082 069 077 degrees QTc Int : 458 ms NORMAL SINUS RHYTHM NORMAL ECG NO PREVIOUS ECGS AVAILABLE Confirmed by VIDHI PETER, FLYNN ([id number]) on 11/15/2018 10:42:50 AM Referred By: Confirmed By:FLYNN MOSHER MD
[2018-11-15 11:40] LABS: COCAINE, UR NEGATIVE ng/ml (CUTOFF=300); METHADONE, UR NEGATIVE ng/ml (CUTOFF=300); OPIATES, URI NEGATIVE ng/ml (CUTOFF=300); PHENCYCLIDINE,URINE NEGATIVE ng/ml (CUTOFF=25); URINE AMPHETAMINES NEGATIVE ng/ml (CUTOFF=500); URINE BARBITURATES NEGATIVE ng/ml (CUTOFF=200)
[2018-11-15 11:41] LABS: URINE BENZODIAZEPINES POSITIVE ng/ml (CUTOFF=200)
[2018-11-15] MEDS ORDERED: SEVOFLURANE 250 ML BTL ONE (12:26)
--- NOTE | 2018-11-15 13:01 | PN ---
Progress Note (short form) - Note Progress Note: EGD performed today revealing small linear ulcer at GEJ, no active bleeding. Antral erythema also seen. Biopsies taken. See scanned endoscopy report for details. Recommendations: -Resume clear liquid diet -PPI BID -Avoid NSAIDs -Follow up pathology results -Follow up iron studies/ferritin -Recommend colonoscopy to be performed prior to discharge once clinically improved or to be pursued as outpt
--- NOTE | 2018-11-15 13:29 | PN ---
Teaching Attending Note Name of Resident: Kaylen Benitez ATTENDING PHYSICIAN STATEMENT I saw and evaluated the patient. I reviewed the resident's note and discussed the case with the resident. I agree with the resident's findings and plan as documented. SUBJECTIVE: Reports loose dark bowel movements and dark vomitus. Denies hematemesis or hematochezia. No abdominal pain/fevers/chills/shakes/ diaphoresis. OBJECTIVE: Afebrile, Hemodynamically Stable Last Vital Signs Temp Pulse Resp BP Pulse Ox 97.9 F 68 20 122/57 L 100 11/15/18 08:56 11/15/18 08:56 11/15/18 08:56 11/15/18 08:56 11/15/18 09:24 HEENT - scalp laceration s/p timo. Heart - S1, S2, RRR Lungs - clear to auscultation Abdomen - Mild epigastric tenderness, soft, bowel sounds normal. Extremities - no edema, no calf tenderness. Laboratory Results - last 24 hr 11/14/18 11/14/18 11/14/18 20:40 20:40 20:40 WBC 8.5 RBC 2.53 L Hgb 8.8 L Hct 26.2 L D MCV 103.4 H MCH 34.6 H MCHC 33.5 RDW 12.6 Plt Count 166 MPV 9.2 Absolute Neuts (auto) 6.1 Neutrophils % 72.0 D Lymphocytes % 20.7 D Monocytes % 5.8 Eosinophils % 1.0 Basophils % 0.5 Nucleated RBC % 0 PT with INR 11.80 INR 1.00 Sodium 144 Potassium 4.0 Chloride 110 H Carbon Dioxide 27 Anion Gap 7 L BUN 39.6 H Creatinine 0.9 Est GFR (CKD-EPI)AfAm 107.97 Est GFR (CKD-EPI)NonAf 93.16 Random Glucose 96 Calcium 8.1 L Total Bilirubin 0.4 AST 38 H ALT 67 H Alkaline Phosphatase 38 L Creatine Kinase Troponin I Total Protein 5.6 L Albumin 3.2 L Stool Occult Blood Opiates Screen Methadone Screen Barbiturate Screen Phencyclidine Screen Ur Amphetamines Screen MDMA (Ecstasy) Screen Benzodiazepines Screen Cocaine Screen U Marijuana (THC) Screen Blood Type Antibody Screen Crossmatch 11/14/18 11/14/18 11/14/18 20:40 20:40 22:20 WBC RBC Hgb Hct MCV MCH MCHC RDW Plt Count MPV Absolute Neuts (auto) Neutrophils % Lymphocytes % Monocytes % Eosinophils % Basophils % Nucleated RBC % PT with INR INR Sodium Potassium Chloride Carbon Dioxide Anion Gap BUN Creatinine Est GFR (CKD-EPI)AfAm Est GFR (CKD-EPI)NonAf Random Glucose Calcium Total Bilirubin AST ALT Alkaline Phosphatase Creatine Kinase 43 Troponin I < 0.02 Total Protein Albumin Stool Occult Blood Positive Opiates Screen Methadone Screen Barbiturate Screen Phencyclidine Screen Ur Amphetamines Screen MDMA (Ecstasy) Screen Benzodiazepines Screen Cocaine Screen U Marijuana (THC) Screen Blood Type O POSITIVE Antibody Screen Negative Crossmatch See Detail 11/15/18 11/15/18 03:18 10:15 WBC RBC Hgb Hct MCV MCH MCHC RDW Plt Count MPV Absolute Neuts (auto) Neutrophils % Lymphocytes % Monocytes % Eosinophils % Basophils % Nucleated RBC % PT with INR INR Sodium Potassium Chloride Carbon Dioxide Anion Gap BUN Creatinine Est GFR (CKD-EPI)AfAm Est GFR (CKD-EPI)NonAf Random Glucose Calcium Total Bilirubin AST ALT Alkaline Phosphatase Creatine Kinase Troponin I Total Protein Albumin Stool Occult Blood Opiates Screen Negative Methadone Screen Negative Barbiturate Screen Negative Phencyclidine Screen Negative Ur Amphetamines Screen Negative MDMA (Ecstasy) Screen Negative Benzodiazepines Screen Positive A* Cocaine Screen Negative U Marijuana (THC) Screen Negative Blood Type O POSITIVE Antibody Screen Crossmatch Current Medications Generic Name Dose Route Start Last Admin Trade Name Freq PRN Reason Stop Dose Admin Acetaminophen 650 mg 11/15/18 05:43 Tylenol - PO Q6H PRN Fever Or Pain Pantoprazole Sodium 80 mg/ 100 mls @ 10 mls/hr 11/15/18 05:00 11/15/18 08:41 Sodium Chloride IVPB 11/16/18 12:00 10 mls/hr Q10H DEIRDRE Administration 8 MG/HR Folic Acid 1 mg/ Thiamine HCl 1,000 mls @ 125 mls/hr 11/15/18 06:02 100 mg/ Multivitamins/Minerals IVPB 11/15/18 14:01 10 ml/ Sodium Chloride ONCE ONE Lactated Ringer's 1,000 ml in 1,000 mls @ 100 mls/hr 11/16/18 13:00 Lactated Ringers Solution IV ASDIR DEIRDRE Home Medications Medication Instructions Recorded Pantoprazole Sodium 40 mg PO DAILY #14 tablet. 11/14/18 ASSESSMENT/PLAN: 57 year old male with history of Alcohol Excess, esophageal strictures, traumatic L4/5 injury s/p discectomy, presents with loose dark stool and vomiting after recent episode of loss of consciousness with head injury, left AMA from [facility] ED on 11/13, now agrees to be admitted for work-up of melena and anemia. 1. Acute Blood Loss Anemia, likely secondary to GEJ ulcer. CT C/A - No dissection/pulmonary embolus s/p EGD - GEJ Ulcer, antral erythema, no active bleeding Receiving 2 units pRBCs. Iron studies pending. PPI BID, Clear liquid diet as per GI recommendations. 2. History of Alcohol Abuse Denies history of withdrawals. s/p Banana Bag No signs of withdrawal currently - will monitor and start Ativan as per CIWA if any withdrawal symptoms. Thiamine, MVI, Folate supplementation 3. History of Esophageal Stricture - no stricture commented on EGD 11/15 4. Syncopal Episode, alcohol related. No prior episodes. No history of seizure activity. CT Head - mild volume loss, no acute findings. Echo pending Scalp laceration s/p timo. No acute telemonitoring events. 5. Non-obstructing renal stones, incidental finding on CT - for out-patient follow up. 6. Macrocytosis - likely secondary to Alcohol use - B12/Folate levels pending. 7. Active Tobacco Use - offered Nicotine patch. DVT Px - SCDs. Heparin held sec to GI Bleed. GI Px - on PPI
--- NOTE | 2018-11-15 14:07 | ECHO ---
Name: OSMANI PENA Exam:Adult Echocardiogram Study Date: 11/15/2018 08:26 AM Age: 58 yrs Reason For Study: +LOC Height: 77 in Weight: 195 lb BSA: 2.2 m2 MMode/2D Measurements & Calculations IVSd: 0.92 cm Ao root diam: 3.2 cm LVIDd: 5.2 cm LA dimension: 2.8 cm LVIDs: 3.1 cm LVPWd: 1.0 cm EDV(Teich): 127.8 ml LVOT diam: 2.0 cm ESV(Teich): 38.6 ml LAV (MOD-bp): 67.6 ml Doppler Measurements & Calculations MV E max asad: 80.5 cm/sec Ao V2 max: 194.0 cm/sec MV A max asad: 76.6 cm/sec Ao max P.1 mmHg MV E/A: 1.1 MV dec time: 0.23 sec PEDRO(V,D): 2.5 cm2 LV V1 max P.0 mmHg TR max asad: 249.3 cm/sec LV V1 max: 150.0 cm/sec TR max P.1 mmHg Med Peak E' Asad: 13.3 cm/sec Med E/e': 6.1 Lat Peak E' Asad: 14.7 cm/sec Lat E/e': 5.5 Procedure A two-dimensional transthoracic echocardiogram with color flow and Doppler was performed. Left Ventricle The left ventricular size, thickness and function are normal. The left ventricular ejection fraction is normal. Left Ventricular Filling pattern is normal for age. The left ventricular wall motion is jewell l. Right Ventricle The right ventricle is normal in size and function. Atria Normal left and right atrial size and function. Mitral Valve There is mild mitral valve thickening. There is no mitral valve stenosis. There is trace to mild mitr al regurgitation. Tricuspid Valve There is mild tricuspid valve thickening. There is no tricuspid stenosis. There was insufficient TR d etected to calculate RV systolic pressure. Aortic Valve The aortic valve is not well visualized. No hemodynamically significant valvular aortic stenosis. No aortic regurgitation is present. Pulmonic Valve The pulmonic valve is not well visualized. Great Vessels The aortic root is normal size. Pericardium/Pleura There is no pericardial effusion. Interpretation Summary The left ventricular size, thickness and function are normal The left ventricular ejection fraction is normal. The left ventricular wall motion is normal. Left Ventricular Filling pattern is normal for age. There was insufficient TR detected to calculate RV systolic pressure. There is trace to mild mitral regurgitation. MD Jagjit Reid 11/15/2018 02:06 PM
[2018-11-15 14:14] LABS: HEMOGLOBIN 8.4 GM/dL (11.7-16.9); MCH 34.1 pg (25.7-33.7); MCHC 33.8 g/dl (32.0-35.9); MEAN CELL VOLUME 100.9 fl (80-96); MEAN PLT VOLUME 9.5 fl (7.5-11.1); PLATELET COUNT 131 K/MM3 (134-434); RBC 2.48 M/mm3 (4.00-5.60); RDW 14.6 % (11.9-15.9); WHITE BLOOD COUNT 6.8 K/mm3 (4.0-10.0)
[2018-11-15 19:55] LABS: HEMATOCRIT 24.2 % (35.4-49); HEMOGLOBIN 8.3 GM/dL (11.7-16.9); MCHC 34.3 g/dl (32.0-35.9); MEAN CELL VOLUME 99.1 fl (80-96); MEAN PLT VOLUME 9.5 fl (7.5-11.1); PLATELET COUNT 123 K/MM3 (134-434); RBC 2.44 M/mm3 (4.00-5.60); RDW 15.3 % (11.9-15.9); WHITE BLOOD COUNT 6.9 K/mm3 (4.0-10.0)
[2018-11-15] MEDS: PANTOPRAZOLE 40 MG TABLET (FP) PO SCH (21:13)
[2018-11-15] MEDS ORDERED: MELATONIN 5 MG TABLETS PO ONE (21:57)
[2018-11-16 04:07] LABS: SERUM IRON SATURATION 86 % (15-55); TOTAL IRON BINDING CAPACITY 242 ug/dL (250-450)
[2018-11-16] MEDS: ACETAMINOPHEN 325 MG TABLET (FP) PO PRN ×2 (06:36→12:23)
[2018-11-16 07:16] LABS: HEMATOCRIT 27.8 % (35.4-49); HEMOGLOBIN 9.5 GM/dL (11.7-16.9); MCH 34.1 pg (25.7-33.7); MCHC 34.3 g/dl (32.0-35.9); MEAN CELL VOLUME 99.4 fl (80-96); MEAN PLT VOLUME 9.7 fl (7.5-11.1); PLATELET COUNT 147 K/MM3 (134-434); RDW 15.1 % (11.9-15.9); WHITE BLOOD COUNT 7.2 K/mm3 (4.0-10.0)
[2018-11-16 07:43] LABS: BLOOD UREA NITROGEN 10.3 mg/dL (7-18); CALCIUM 8.2 mg/dL (8.5-10.1); CREATININE 0.9 mg/dL (0.55-1.3); MAGNESIUM 2.3 mg/dL (1.8-2.4); PHOSPHOROUS 2.4 mg/dL (2.5-4.9); POTASSIUM 4.3 mmol/L (3.5-5.1)
[2018-11-16] MEDS: PANTOPRAZOLE 40 MG TABLET (FP) PO SCH (09:31)
[2018-11-16] MEDS ORDERED: SODIUM PHOSPHATE - 15 MM in SODIUM CHLORIDE 250 ML IVPB ONE (10:00)
--- NOTE | 2018-11-16 10:55 | PN ---
Teaching Attending Note Name of Resident: Isabella Noriega ATTENDING PHYSICIAN STATEMENT I saw and evaluated the patient. I reviewed the resident's note and discussed the case with the resident. I agree with the resident's findings and plan as documented. SUBJECTIVE: No further dark bowel movements or nausea/vomiting. Denies hematemesis or hematochezia. No abdominal pain/fevers/chills/shakes/ diaphoresis. Tolerating oral intake. OBJECTIVE: Afebrile, Hemodynamically Stable Last Vital Signs Temp Pulse Resp BP Pulse Ox 98.0 F 57 L 18 121/70 100 11/16/18 06:00 11/16/18 06:00 11/16/18 06:00 11/16/18 06:00 11/15/18 21:00 HEENT - R parietal scalp laceration s/p timo. Heart - S1, S2, RRR Lungs - clear to auscultation Abdomen - Soft, non-tender, bowel sounds normal. Extremities - no edema, no calf tenderness. Laboratory Results - last 24 hr 11/14/18 11/15/18 11/15/18 20:40 03:18 10:15 WBC RBC Hgb Hct MCV MCH MCHC RDW Plt Count MPV Sodium Potassium Chloride Carbon Dioxide Anion Gap BUN Creatinine Est GFR (CKD-EPI)AfAm Est GFR (CKD-EPI)NonAf Random Glucose Calcium Phosphorus Magnesium Iron 208 H TIBC 242 L Iron Saturation 86 H Unsaturated IBC 34 L Ferritin Vitamin B12 Serum Folate Opiates Screen Negative Methadone Screen Negative Barbiturate Screen Negative Phencyclidine Screen Negative Ur Amphetamines Screen Negative MDMA (Ecstasy) Screen Negative Benzodiazepines Screen Positive A* Cocaine Screen Negative U Marijuana (THC) Screen Negative Blood Type O POSITIVE Antibody Screen Negative Crossmatch See Detail 11/15/18 11/15/18 11/15/18 13:44 13:44 19:00 WBC 6.8 6.9 RBC 2.48 L 2.44 L Hgb 8.4 L 8.3 L Hct 25.0 L 24.2 L MCV 100.9 H 99.1 H MCH 34.1 H 34.0 H MCHC 33.8 34.3 RDW 14.6 D 15.3 Plt Count 131 L D 123 L MPV 9.5 9.5 Sodium Potassium Chloride Carbon Dioxide Anion Gap BUN Creatinine Est GFR (CKD-EPI)AfAm Est GFR (CKD-EPI)NonAf Random Glucose Calcium Phosphorus Magnesium Iron TIBC Iron Saturation Unsaturated IBC Ferritin 317.6 Vitamin B12 427 Serum Folate 28 H Opiates Screen Methadone Screen Barbiturate Screen Phencyclidine Screen Ur Amphetamines Screen MDMA (Ecstasy) Screen Benzodiazepines Screen Cocaine Screen U Marijuana (THC) Screen Blood Type Antibody Screen Crossmatch 11/16/18 11/16/18 06:14 06:14 WBC 7.2 RBC 2.80 L Hgb 9.5 L Hct 27.8 L MCV 99.4 H MCH 34.1 H MCHC 34.3 RDW 15.1 Plt Count 147 MPV 9.7 Sodium 142 Potassium 4.3 Chloride 109 H Carbon Dioxide 29 Anion Gap 4 L BUN 10.3 Creatinine 0.9 Est GFR (CKD-EPI)AfAm 107.97 Est GFR (CKD-EPI)NonAf 93.16 Random Glucose 98 Calcium 8.2 L Phosphorus 2.4 L Magnesium 2.3 Iron TIBC Iron Saturation Unsaturated IBC Ferritin Vitamin B12 Serum Folate Opiates Screen Methadone Screen Barbiturate Screen Phencyclidine Screen Ur Amphetamines Screen MDMA (Ecstasy) Screen Benzodiazepines Screen Cocaine Screen U Marijuana (THC) Screen Blood Type Antibody Screen Crossmatch Current Medications Generic Name Dose Route Start Last Admin Trade Name Freq PRN Reason Stop Dose Admin Acetaminophen 650 mg 11/15/18 05:43 11/16/18 06:36 Tylenol - PO 650 mg Q6H PRN Administration Fever Or Pain Sodium Phosphate 15 mm/ Sodium 255 mls @ 62.5 mls/hr 11/16/18 10:00 11/16/18 10:31 Chloride IVPB 11/16/18 14:04 62.5 mls/hr ONCE ONE Administration Pantoprazole Sodium 40 mg 11/15/18 22:00 11/16/18 09:31 Protonix - PO 40 mg BID DEIRDRE Administration ASSESSMENT/PLAN: 57 year old male with history of Alcohol Excess, esophageal strictures, traumatic L4/5 injury s/p discectomy, presents with loose dark stool and vomiting after recent episode of loss of consciousness with head injury, left AMA from [facility] ED on 11/13, subsequently admitted for work-up of melena and anemia. 1. Acute Blood Loss Anemia, likely secondary to GEJ ulcer. CT C/A - No dissection/pulmonary embolus s/p EGD 11/15 - GEJ Ulcer, antral erythema, no active bleeding H/H 9.5/29.8 s/p 2 units pRBCs. Tolerating diet, wants to be discharged. PPI BID. GI follow up as out-patient for Colonoscopy as per GI recommendations. 2. History of Alcohol Abuse No evidence of withdrawals s/p Banana Bag Thiamine, MVI, Folate supplementation on discharge. 3. History of Esophageal Stricture - no stricture commented on EGD 11/15 4. Syncopal Episode, alcohol related. No prior episodes. No history of seizure activity. CT Head - mild volume loss, no acute findings. Echo normal. No acute telemonitoring events. Scalp laceration s/p timo - advised to follow with PCP or [facility] for staple removal next week. 5. Non-obstructing renal stones, incidental finding on CT - for out-patient follow up. 6. Macrocytosis - likely secondary to Alcohol use - B12/Folate levels not deficient. 7. Active Tobacco Use - offered Nicotine patch. 8. Hypophosphatemia - due to slow advancement of diet. Phos repleted. Regular diet today. Medically optimized for discharge. No evidence of further blood loss. Counselled regarding need to abstain from alcohol and benzodiazepines (utox pos for Benzos). Importance of PCP and GI follow up (for possible colonoscopy) impressed upon Mr. Felderjoseph. He verbalized understanding.
--- NOTE | 2018-11-16 12:08 | DS ---
Physical Exam: SUBJECTIVE: Patient seen and examined this AM. Seen Ambulating to the solarium. No new complaints, feels much better. No reported dark stools or BRBPR. OBJECTIVE: Vital Signs Period Temp Pulse Resp BP Sys/Hernandez Pulse Ox Last 24 Hr 97.5 F-98.2 F 57-84 16-19 102-136/58-92 98-100 PHYSICAL EXAM GENERAL: A&Ox3, NAD HEAD: NCAT EYES: PERRL, EOMI ENT: moist mucous membranes NECK: Supple LUNGS: Clear to auscultation bilaterally, no wheezes HEART: Regular rate and rhythm, S1, S2 without murmur ABDOMEN: Soft, nontender, nondistended, + bowel sounds, no guarding EXTREMITIES: no edema NEUROLOGICAL: Cranial nerves II through XII grossly intact. Normal speech. SKIN: Warm, dry LABS Laboratory Last Values WBC 7.2 K/mm3 (4.0-10.0) 11/16/18 06:14 RBC 2.80 M/mm3 (4.00-5.60) L 11/16/18 06:14 Hgb 9.5 GM/dL (11.7-16.9) L 11/16/18 06:14 Hct 27.8 % (35.4-49) L 11/16/18 06:14 MCV 99.4 fl (80-96) H 11/16/18 06:14 MCH 34.1 pg (25.7-33.7) H 11/16/18 06:14 MCHC 34.3 g/dl (32.0-35.9) 11/16/18 06:14 RDW 15.1 % (11.9-15.9) 11/16/18 06:14 Plt Count 147 K/MM3 (134-434) 11/16/18 06:14 MPV 9.7 fl (7.5-11.1) 11/16/18 06:14 Absolute Neuts (auto) 6.1 K/mm3 (1.5-8.0) 11/14/18 20:40 Neutrophils % 72.0 % (42.8-82.8) D 11/14/18 20:40 Lymphocytes % 20.7 % (8-40) D 11/14/18 20:40 Monocytes % 5.8 % (3.8-10.2) 11/14/18 20:40 Eosinophils % 1.0 % (0-4.5) 11/14/18 20:40 Basophils % 0.5 % (0-2.0) 11/14/18 20:40 Nucleated RBC % 0 % (0-0) 11/14/18 20:40 PT with INR 11.80 SEC (9.7-13.0) 11/14/18 20:40 INR 1.00 (0.83-1.09) 11/14/18 20:40 Sodium 142 mmol/L (136-145) 11/16/18 06:14 Potassium 4.3 mmol/L (3.5-5.1) 11/16/18 06:14 Chloride 109 mmol/L (98-107) H 11/16/18 06:14 Carbon Dioxide 29 mmol/L (21-32) 11/16/18 06:14 Anion Gap 4 MMOL/L (8-16) L 11/16/18 06:14 BUN 10.3 mg/dL (7-18) 11/16/18 06:14 Creatinine 0.9 mg/dL (0.55-1.3) 11/16/18 06:14 Est GFR (CKD-EPI)AfAm 107.97 11/16/18 06:14 Est GFR (CKD-EPI)NonAf 93.16 11/16/18 06:14 Random Glucose 98 mg/dL (74-106) 11/16/18 06:14 Calcium 8.2 mg/dL (8.5-10.1) L 11/16/18 06:14 Phosphorus 2.4 mg/dL (2.5-4.9) L 11/16/18 06:14 Magnesium 2.3 mg/dL (1.8-2.4) 11/16/18 06:14 Iron 208 ug/dL (38-169) H 11/15/18 03:18 TIBC 242 ug/dL (250-450) L 11/15/18 03:18 Iron Saturation 86 % (15-55) H 11/15/18 03:18 Unsaturated IBC 34 ug/dL (111-343) L 11/15/18 03:18 Ferritin 317.6 ng/ml (8-388) 11/15/18 13:44 Total Bilirubin 0.4 mg/dL (0.2-1) 11/14/18 20:40 AST 38 U/L (15-37) H 11/14/18 20:40 ALT 67 U/L (13-61) H 11/14/18 20:40 Alkaline Phosphatase 38 U/L (45-117) L 11/14/18 20:40 Creatine Kinase 43 U/L (26-308) 11/14/18 20:40 Troponin I < 0.02 ng/ml (0.00-0.05) 11/14/18 20:40 Total Protein 5.6 g/dl (6.4-8.2) L 11/14/18 20:40 Albumin 3.2 g/dl (3.4-5.0) L 11/14/18 20:40 Vitamin B12 427 pg/ml (193-986) 11/15/18 13:44 Serum Folate 28 ng/mL (3.1-17.5) H 11/15/18 13:44 Stool Occult Blood Positive (NEGATIVE) 11/14/18 22:20 Opiates Screen Negative ng/ml (SKOJVH=676) 11/15/18 10:15 Methadone Screen Negative ng/ml (MISEBQ=821) 11/15/18 10:15 Barbiturate Screen Negative ng/ml (FJWDXZ=816) 11/15/18 10:15 Phencyclidine Screen Negative ng/ml (CUTOFF=25) 11/15/18 10:15 Ur Amphetamines Screen Negative ng/ml (OBTNKK=356) 11/15/18 10:15 MDMA (Ecstasy) Screen Negative ng/ml (YJONKQ=847) 11/15/18 10:15 Benzodiazepines Screen Positive ng/ml (QATROA=598) A* 11/15/18 10:15 Cocaine Screen Negative ng/ml (XNHYFQ=950) 11/15/18 10:15 U Marijuana (THC) Screen Negative ng/ml (CUTOFF=50) 11/15/18 10:15 Blood Type O POSITIVE 11/15/18 03:18 Antibody Screen Negative 11/14/18 20:40 Crossmatch See Detail 11/14/18 20:40 IMAGING: -CXR: Unremarkable examination. -CT Head without contrast: Mild volume loss. No gross evidence of a focal intracranial lesion or hemorrhage is seen. -CTA Chest/Abdomen/Pelvis: There is no evidence of aneurysmal dilatation or dissection involving the thoracic and abdominal aorta down through its bifurcation. No evidence of a pulmonary embolus in the main pulmonary artery and its proximal bifurcations, bilaterally. No enlarged mediastinal or hilar lymph nodes are identified. No acute lung disease is present. Possible few tiny diverticula in splenic flexure of the colon without evidence of acute diverticulitis. Nonobstructing left renal stones with the largest measuring 7 mm as well as nonobstructing right renal stones with the largest measuring 4.5 mm without gross evidence of hydronephrosis. -EKG: NSR, VR 83, QTc 458 -ECHO: LVEF is normal HOSPITAL COURSE: Date of Admission:11/15/18 Date of Discharge: 11/16/18 58 y/o M with PMHx of esophageal strictures s/p dilation, traumatic L4/L5 injury s/p discectomy, who recently visited [facility] for Abdominal pain and vomiting, presented to [facility] after a syncopal episode with resultant head laceration stapled on admission. Imaging, Echo and Labwork noted above. Orthostatic vital signs on admission were positive. Admission labwork found a Hgb drop from 10.7 to 8.8 and patient was transfused 2 units pRBCs. An EGD found a GEJ Ulcer without active bleeding. Patient was started on PPI during his stay and an outpatient colonoscopy was done as per GI rec's. patients Hgb responded appropriately to pRBC transfusions and no further episodes of BRBPR or Dark stools noted. Patients diet was advanced and he tolerated. Additionally , Lab work reveal macrocytosis in the setting of excessive EtOH use for which the patient was counselled to avoid EtOH at home and for Thiamine/Folate/MVI supplementation. UTox was positive for benzo's and patient was advised to avoid EtOH and Benzos as these likely contributed to his syncopal episode. Additional recommendations made in DC plan discussed with patient who verbalized understanding. Patient discharged home with recommended outpatient follow up, medication changes and imaging/labwork followup. Minutes to complete discharge: 36 Discharge Summary Reason For Visit: GASTROINTESTINAL HEMORRHAGE,ANEMIA,TRAUMATIC Current Active Problems Anemia (Acute) Gastrointestinal hemorrhage (Acute) Laceration of scalp (Acute) Syncope (Acute) Traumatic injury of head (Acute) Condition: Stable - Instructions Diet, Activity, Other Instructions: You presented to the hospital after a syncopal episodes and were found to be anemic. You were transfused 1 unit of red blood cells. An Endoscopy revealed you have an Ulcer in your stomach. Medication Changes: 1. Please avoid NSAIDs as this will worsen the ulceration 2. You must continue Taking a multivitamin, THiamine and Folic acid. Follow up with the following physicians: 1. PCP in one week, please call to schedule follow up. Additionally you will need to see your PCP to have the timo removed from your laceration. 2. Welcome Hostess in one weeks, Please call to schedule follow up as you will need a colonoscopy Labwork 1. You will need a follow up CBC to monitor your blood hemoglobin level in one week. 2. You need to have your liver enzymes and Liver ultrasound done--Please discuss this with your PCP You must avoid further alcohol use and Benzodiazepine use as these likely contributed to your fall. Your CT Scan reveal you have some nonobstructing kidney stones. Please drink more water as this will help. Continue all your other medications as prescribed Please return to the ER if you have any signs or symptoms of chest pain, shortness of breath, uncontrollable fever, chills, nausea, vomiting, numbness, tingling, or weakness in any part of your body, changes in vision, or slurred speech. Please return to the ER if symptoms persist, worsen, or new symptoms arise. Referrals: Manjinder Tomlin DO [Staff Physician] - Disposition: HOME - Home Medications Comprehensive Discharge Medication List: Ambulatory Orders Folic Acid 1 mg PO DAILY #30 tablet 11/16/18 Pantoprazole Sodium [Protonix -] 40 mg PO BID #60 tablet.ec 11/16/18 Thiamine HCl [Vitamin B-1] 100 mg PO DAILY #30 tablet 11/16/18 This patient is new to me today: No Emergency Visit: Yes ED Registration Date: 11/15/18 Care time: The patient presented to the Emergency Department on the above date and was hospitalized for further evaluation of their emergent condition. Critical Care patient: No - Discharge Referral Referred to [facility] Med P.C.: No
[2018-11-16] MEDS ORDERED: LACTATED RINGERS SOLUTION 1,000 ML/1,000 ML INFUS.BAG IV SCH (13:00)
[2018-11-16 15:35] VITALS: BP 113/63; PULSE 65; TEMP 98.5
--- NOTE | 2018-11-20 15:57 | PATH ---
Surgical Pathology Report Patient Name: OSMANI PENA [facility]. Rec. #: [id number] /Age/Gender: 1960 (Age: 58) / M Account: [id number] Location: [facility] PEDS/ADOL Taken: 11/15/2018 Received: 11/17/2018 Reported: 11/20/2018 Physicians: MD Walter Mercado MD Specimen(s) Received A: ANTRUM B: GE JUNCTION Clinical History Anemia, vomiting, diarrhea Postoperative diagnosis: GE junction, ulcer Final Diagnosis A. STOMACH, ANTRUM, BIOPSY: GASTRIC ANTRAL MUCOSA WITH MILD CHRONIC GASTRITIS. IMMUNOHISTOCHEMICAL STAIN FOR H. PYLORI IS NEGATIVE. B. GE JUNCTION, BIOPSY: SQUAMOCOLUMNAR MUCOSA WITH MILD CHRONIC INFLAMMATION AND CHANGES OF MODERATE TO SEVERE REFLUX ESOPHAGITIS. NO INTESTINAL METAPLASIA OR DYSPLASIA IDENTIFIED. Electronically Signed Tracie Stanton M.D. Gross Description A. Received in formalin, labeled "biopsy antrum" are 2 panda, irregular portions of soft tissue measuring 0.3 and 0.6 cm. in greatest dimension. The specimens are submitted in toto in one cassette. B. Received in formalin, labeled "biopsy GE junction" is a panda, irregular portion of soft tissue measuring 0.5 cm. in greatest dimension. The specimen is submitted in toto in one cassette. 11/17/201811/17/2018
== END 2018-11-16 16:44 | disposition home or self-care (01) | DRG 378 ==
LOC: JER 18:14 → JERBED 11-15 00:43 → J4S 11-15 08:13
PROVIDERS: ADMIT Internal Medicine
PROC: 30233N1 Transfusion of Nonautologous Red Blood Cells into Peripheral Vein, Percutaneous Approach (ICD-10-PCS; 2018-11-15)
PROC: 0DB68ZX Excision of Stomach, Via Natural or Artificial Opening Endoscopic, Diagnostic (ICD-10-PCS; principal; 2018-11-15 11:45)
DX: K92.2 Gastrointestinal hemorrhage, unspecified (principal); D62 Acute posthemorrhagic anemia; R55 Syncope and collapse; N20.0 Calculus of kidney; D75.89 Other specified diseases of blood and blood-forming organs; E83.39 Other disorders of phosphorus metabolism; F17.210 Nicotine dependence, cigarettes, uncomplicated; R74.0 Nonspecific elevation of levels of transaminase and lactic acid dehydrogenase [LDH]; I95.1 Orthostatic hypotension; S01.01XA Laceration without foreign body of scalp, initial encounter; W19.XXXA Unspecified fall, initial encounter; Y93.89 Activity, other specified; Y92.89 Other specified places as the place of occurrence of the external cause; Y99.9 Unspecified external cause status; K25.9 Gastric ulcer, unspecified as acute or chronic, without hemorrhage or perforation; K21.0 Gastro-esophageal reflux disease with esophagitis
CPT/HCPCS: 36415; 36430; 70450-TC; 71045-TC-FY; 71275-TC; 74175-TC; 80048; 80053; 80307; 82272; 82550; 82607; 82728; 82746; 83540; 83550; 83655; 83735; 84100; 84484; 85025; 85027; 85610; 86850; 86900; 86901; 86922; 88305-TC; 93005; 93010; 93306-TC; 97116-GP; 97161-GP; 99285-25; J7030; P9038; P9058